=== PATIENT | female | born 1970 | race Caucasian/White ===

== ENCOUNTER 2018-05-29 02:15 | Emergency (ER) | payer OTHER ==
[~2018-05-29] VITALS: Ht 154.9 cm; Wt 74.8 kg
[2018-05-29] MEDS ORDERED: ALLERGY INJECTIONS (02:30)
[2018-05-29] MEDS ORDERED: ZYRTEC10 M5 PO (02:31)
[2018-05-29] MEDS ORDERED: INHALER (02:32)
[2018-05-29] MEDS ORDERED: PROAIR HFA8.5 GM (02:32)
[2018-05-29] MEDS ORDERED: PRAVACHOL80 MG PO (02:33)
[2018-05-29] MEDS ORDERED: ANTIVERT25 MG PO (02:33)
[2018-05-29] MEDS ORDERED: NASACORT10.8 ML (02:34)
[2018-05-29 02:47] LABS: URINE BLOOD 3+ (Negative); URINE CLARITY SL CLOUDY; URINE COLOR DARK YELLOW; URINE GLUCOSE-RANDOM NEGATIVE (Negative); URINE KETONES TRACE (Negative); URINE LEUKOCYTES-REFLEX TRACE (Negative); URINE PROTEIN 3+ (Negative); URINE UROBILINOGEN >= 8.0 E.U./dl (0.2-1.0)
[2018-05-29 02:49] LABS: ICTOTEST (BILI CONFIRMATORY) Negative (Negative); URINE BILIRUBIN 2+ (Negative); URINE NITRITE-REFLEX POSITIVE (Negative)
[2018-05-29] MEDS ORDERED: CIPROFLOXACIN500 M1 PO (03:03)
[2018-05-29] MEDS ORDERED: NORCO 5-325 TA1 EACH PO (03:03)
[2018-05-29 03:06] LABS: CASTS None Seen /LPF (None Seen); SQUAMOUS >10 Many /LPF (0-3); URINE WBC-REFLEX 6-15 Few /HPF (0-5)
[2018-05-29 03:07] LABS: CRYSTALS None Seen /LPF (None Seen); URINE RBC >20 Many /HPF (0-2)
[2018-05-29 03:25] VITALS: BP 124/80
== END 2018-05-29 03:25 | disposition home or self-care (01) ==
LOC: M.ERS 02:15
PROVIDERS: Emergency Medicine
DX: N39.0 Urinary tract infection, site not specified (principal); Z91.013 Allergy to seafood